=== PATIENT | female | born 1960 | race Caucasian/White ===

== ENCOUNTER 2016-09-05 21:39 | Emergency (ER) | payer OTHER ==
[~2016-09-05] VITALS: Ht 160 cm; Wt 58.5 kg
[~2016-09-05 21:39] MED LIST: CYCL-319 PO; GLIP-95 PO; LANT3I SC; LOPE2CAP PO; MTF1000T PO; NITR-58 PO; PHEN-538 PO; SIMV20TA2 PO
[2016-09-05 21:49] VITALS: Ht 160 cm; Wt 58.5 kg
[2016-09-05] MEDS ORDERED: SOD CHLORIDE 0.9% 1,000 ML IV ONE (23:00)
[2016-09-05 23:17] LABS: ADD SCAN DIFF NO
[2016-09-05 23:19] LABS: BASOPHILS % 0.4 % (0.0-2.0); EOSINOPHILS # 0.1 10^3/ul (0.0-0.5); EOSINOPHILS % 0.7 % (0.0-7.0); HEMATOCRIT 39.1 % (37.0-47.0); HEMOGLOBIN 13.6 g/dl (12.0-16.0); LYMPHOCYTES # 1.6 10^3/ul (0.8-2.9); LYMPHOCYTES % 20.5 % (15.0-51.0); MEAN CORPUSCULAR HEMOGLOBIN 30.4 pg (29.0-33.0); MEAN CORPUSCULAR HGB CONC 34.8 g/dl (32.0-37.0); MEAN CORPUSCULAR VOLUME 87.5 fl (82.0-101.0); MEAN PLATELET VOLUME 9.2 fl (7.4-10.4); MONOCYTE # 0.5 10^3/ul (0.3-0.9); NEUTROPHIL # 5.4 10^3/ul (1.6-7.5); NEUTROPHILS % 70.9 % (39.0-77.0); PLATELET COUNT 398 10^3/UL (140-415); RED BLOOD COUNT 4.47 10^6/ul (4.20-5.40); RED CELL DISTRIBUTION WIDTH 12.8 % (11.5-14.5); WHITE BLOOD COUNT 7.7 10^3/ul (4.8-10.8)
--- NOTE | 2016-09-05 23:21 | ERD ---
ER Documentation Chief Complaint Date/Time DATE: 09/05/16 TIME: 23:20 Chief Complaint fever on and off x 2 days, body pain, chills HPI 56-year-old male presents here in emergency department for complaints of generalized bodyaches, chills, fever on-and-off for the last 2 days. Patient does any other symptoms. Patient denies any abdominal pain, flank pain hematuria dysuria. Patient denies any nausea or vomiting. Patient denies any sick contacts patient denies any cough ROS All systems reviewed and are negative except as per history of present illness. Medications Home Meds Active Scripts Acetaminophen* (Tylophen*) 500 Mg Capsule, 1 CAP PO Q6H Y for PAIN AND OR ELEVATED TEMP, #20 CAP Prov:SP[employer]ER [employer]ILD [employer] 09/06/16 Ibuprofen* (Motrin*) 400 Mg Tab, 400 MG PO Q6H Y for PAIN AND OR ELEVATED TEMP, #30 TAB Prov:SPENCER FAIRCHILD NP 09/06/16 Phenazopyridine Hcl* (Pyridium*) 200 Mg Tab, 200 MG PO TID Y for URINARY PAIN, # 6 TAB Prov:SP[employer]ER [employer]CHILD [employer] 09/06/16 Ciprofloxacin Hcl* (Ciprofloxacin Hcl*) 500 Mg Tablet, 500 MG PO BID for 10 Days , TAB Prov:SPENCER FAIRCHILD NP 09/06/16 Loperamide Hcl* (Imodium*) 2 Mg Capsule, 2 MG PO .AFTER EA LOOSE BM Y for DIARRHEA, #10 TAB Prov:XIOMARA LEE MD 09/30/14 Phenazopyridine Hcl* (Pyridium*) 200 Mg Tab, 200 MG PO TID Y for uti, pain, #6 TAB Prov:JAYDA FLOWERS 09/26/14 Nitrofurantoin Monohyd Macrocr* (Macrobid*) 100 Mg Capsr, 100 MG PO BID for 14 Days, CAP Prov:JAYDA FLOWERS 09/26/14 Reported Medications Cyclobenzaprine Hcl* (Cyclobenzaprine Hcl*) 10 Mg Tablet, 10 MG PO QHS, TAB 09/30/14 Simvastatin (Simvastatin) 20 Mg Tablet, 20 MG PO HS, TAB 09/30/14 Insulin Glargine* (Lantus*) 100 Unit/Ml Soln, 7 UNIT SC HS, EA 09/26/14 Glipizide* (Glipizide*) 10 Mg Tablet, 10 MG PO BID, TAB 09/26/14 Metformin* (Glucophage*) 1,000 Mg Tablet, 1000 MG PO BID 11/02/11 Allergies Allergies: Coded Allergies: No Known Allergy (Unverified , 09/26/14) PMhx/Soc History of Surgery: No Anesthesia Reaction: No Hx Neurological Disorder: No Hx Respiratory Disorders: No Hx Cardiac Disorders: Yes (DM) Hx Psychiatric Problems: No Hx Miscellaneous Medical Probl: Yes (HIGH CHOLESTEROL) Hx Alcohol Use: No Hx Substance Use: No Hx Tobacco Use: No FmHx Family History: No coronary disease, No diabetes, No other Physical Exam Vitals Vital Signs Date Time Temp Pulse Resp B/P Pulse Ox O2 Delivery O2 Flow Rate FiO2 09/06/16 01:48 100.0 103 17 112/63 97 Room Air 09/05/16 21:49 98.9 114 20 139/76 98 Physical Exam GENERAL: The patient is well developed and appropriate for usual state of health, in no apparent distress. CHEST: Clear to auscultation bilaterally. There are no rales, wheezes or rhonchi. HEART: Regular rate and rhythm. No murmurs, clicks, rubs or gallops. No S3 or S4. ABDOMEN: Soft, nontender and nondistended. Good bowel sounds. No rebound or guarding. No gross peritonitis. No gross organomegaly or masses. No Manrique sign or McBurney point tenderness. BACK: No midline or flank tenderness. EXTREMITIES: Equal pulses bilaterally. There is no peripheral clubbing, cyanosis or edema. No focal swelling or erythema. Full range of motion. Grossly neurovascularly intact. NEURO: Alert and oriented. Cranial nerves 2-12 intact. Motor strength in all 4 extremities with 5/5 strength. Sensation grossly intact. Normal speech and gait. SKIN: There is no apparent rash or petechia. The skin is warm and dry. HEMATOLOGIC AND LYMPHATIC: There is no evidence of excessive bruising or lymphedema. No gross cervical, axillary, or inguinal lymphadenopathy. Result Diagram: 09/05/16 2300 09/05/16 2300 Results 24 hrs Laboratory Tests Test 09/05/16 23:00 White Blood Count 7.710^3/ul Red Blood Count 4.4710^6/ul Hemoglobin 13.6g/dl Hematocrit 39.1% Mean Corpuscular Volume 87.5fl Mean Corpuscular Hemoglobin 30.4pg Mean Corpuscular Hemoglobin Concent 34.8g/dl Red Cell Distribution Width 12.8% Platelet Count 78546^3/UL Mean Platelet Volume 9.2fl Neutrophils % 70.9% Lymphocytes % 20.5% Monocytes % 7.0% Eosinophils % 0.7% Basophils % 0.4% Nucleated Red Blood Cells % 0.0/100WBC Neutrophils # 5.410^3/ul Lymphocytes # 1.610^3/ul Monocytes # 0.510^3/ul Eosinophils # 0.110^3/ul Basophils # 0.010^3/ul Nucleated Red Blood Cells # 0.010^3/ul Urine Color YELLOW Urine Clarity CLEAR Urine pH 6.0 Urine Specific [place] 1.017 Urine Ketones TRACEmg/dL Urine Nitrite NEGATIVEmg/dL Urine Bilirubin NEGATIVEmg/dL Urine Urobilinogen NEGATIVEmg/dL Urine Leukocyte Esterase 3+Isis/ul Urine Microscopic RBC 1/HPF Urine Microscopic WBC 6/HPF Urine Squamous Epithelial Cells FEW/HPF Urine Hemoglobin NEGATIVEmg/dL Urine Glucose 3+mg/dL Urine Total Protein NEGATIVEmg/dl Sodium Level 136mmol/L Potassium Level 4.5mmol/L Chloride Level 100mmol/L Carbon Dioxide Level 24mmol/L Anion Gap 17 Blood Urea Nitrogen 17mg/dl Creatinine 0.69mg/dl Glucose Level 237mg/dl Calcium Level 9.5mg/dl Total Bilirubin 0.1mg/dl Direct Bilirubin 0.00mg/dl Indirect Bilirubin 0.1mg/dl Aspartate Amino Transf (AST/SGOT) 52IU/L Alanine Aminotransferase (ALT/SGPT) 61IU/L Alkaline Phosphatase 153IU/L Total Protein 7.5g/dl Albumin 4.6g/dl Globulin 2.90g/dl Albumin/Globulin Ratio 1.58 Lipase 233U/L Current Medications Medications (Trade) Dose Ordered Sig/Brian Route PRN Reason Start Time Stop Time Status Last Admin Dose Admin Sodium Chloride 1,000 ml @ 1,000 mls/hr Q1H ONCE IV 09/05/16 23:00 09/05/16 23:59 DC 09/05/16 23:32 Ceftriaxone Sodium (Rocephin) 50 ml @ 100 mls/hr ONCE ONCE IVPB 09/06/16 00:00 09/06/16 00:29 DC 09/06/16 00:20 Normal saline IV bolus was given here in emergency department for rehydration, patient tolerated IV fluids. IV Rocephin was given here in emergency department for treatment of pyelonephritis Microbiology INFLUENZA A & B BY EIA Final INFLU A&B BY EIA INFLUENZA A NEGATIVE (Ref Range Neg) INFLUENZA B NEGATIVE (Ref Range Neg) Procedures/MDM Medical Decision Making: Patients symptoms are consistent with acute pyelonephritis. Outpatient management is appropriate at this time since patient appears well and is hemodynamically stable, no symptoms of sepsis, strict return precautions were advised the patient. Patient's blood sugars also control. no ketoacidosis noted. There is low suspicion for abdominal emergencies at this time. Patients abdominal exam is normal. There is low suspicion for sepsis. Patient appears well and is hemodynamically stable. Patient's diabetic symptoms have stabilized here in the emergency department and appear appropriate for outpatient management. No evidence at this time of diabetic ketoacidosis, hyperosmolar syndrome, or severe systemic infection Disposition: Home. Stable Prescription ciprofloxacin, Pyridium, ibuprofen Instructions: Patient is advised to take medications as prescribed. Patient is advised to rest, increase fluid intake and do good perineal hygiene. Patient is advised that if symptoms are worse, severe abdominal pain, uncontrolled vomiting , high fever, severe flank pain, worst signs and symptoms, to return to the emergency department immediately. Otherwise, patient can follow up with primary care doctor in 5-7 days. . Departure Diagnosis: Primary Impression: Pyelonephritis Condition: Stable Patient Instructions: Pyelonephritis, Female (Adult) Additional Instructions: Patient is advised to take medications as prescribed. Patient is advised to rest , increase fluid intake and do good perineal hygiene. Patient is advised that if symptoms are worse, severe abdominal pain, uncontrolled vomiting, high fever , severe flank pain, worst signs and symptoms, to return to the emergency department immediately. Otherwise, patient can follow up with primary care doctor in 5-7 days. SPENCER FAIRCHILD. OSVALDO Sep 05, 2016 23:21
[2016-09-05 23:22] LABS: ADD UMIC YES; UR ASCORBIC ACID NEGATIVE (NEGATIVE); UR BILIRUBIN (Dip) NEGATIVE (NEGATIVE); UR BLOOD (Dip) NEGATIVE (NEGATIVE); UR CLARITY CLEAR (CLEAR); UR COLOR YELLOW (YELLOW); UR GLUCOSE (Dip) 3+ mg/dL (NEGATIVE); UR KETONES (Dip) TRACE mg/dL (NEGATIVE); UR LEUKOCYTE ESTERASE (Dip) 3+ Leu/ul (NEGATIVE); UR NITRITE (Dip) NEGATIVE (NEGATIVE); UR RBC 1 /HPF (0-5); UR SPECIFIC GRAVITY (Dip) 1.017 (1.003-1.030); UR SQUAMOUS EPITHELIAL CELL FEW /HPF (FEW); UR TOTAL PROTEIN (Dip) NEGATIVE (NEGATIVE); UR UROBILINOGEN (Dip) NEGATIVE (NEGATIVE)
[2016-09-05 23:39] LABS: ALBUMIN 4.6 g/dl (3.3-4.9); ALBUMIN/GLOBULIN RATIO 1.58; BILIRUBIN,INDIRECT 0.1 mg/dl (0-1.1); BILIRUBIN,TOTAL 0.1 mg/dl (0.2-1.3); CALCIUM 9.5 mg/dl (8.4-10.2); CREATININE 0.69 mg/dl (0.44-1.00); POTASSIUM 4.5 mmol/L (3.5-5.1); TOTAL PROTEIN 7.5 g/dl (6.1-8.1)
[2016-09-06] MEDS ORDERED: CEFTRIAXONE 1 GM/50 ML (PMX) 50 ML IVPB ONE
[2016-09-06] MEDS ORDERED: CIPR500T4 PO (00:32)
[2016-09-06] MEDS ORDERED: IBUP400T22 PO (00:32)
[2016-09-06] MEDS ORDERED: ACET500C5 PO (00:32)
[2016-09-06] MEDS ORDERED: PHEN-538 PO (00:32)
[2016-09-06 01:48] VITALS: BP 112/63; PULSE 103; RESP 17; TEMP 100
== END 2016-09-06 01:48 | disposition home or self-care (01) ==
LOC: FTE 21:39
DX: N12 Tubulo-interstitial nephritis, not specified as acute or chronic (principal); E11.9 Type 2 diabetes mellitus without complications; Z79.4 Long term (current) use of insulin; Z79.84 Long term (current) use of oral hypoglycemic drugs
CPT/HCPCS: 80053; 81001; 83690; 85025; 87086; 87400; J0696; J7030; 36415; 96361; 96365

== ENCOUNTER 2017-03-16 12:42 | Emergency (ER) | END 2017-03-17 17:43 | disposition home or self-care (01) ==

== ENCOUNTER 2018-08-27 13:16 | Emergency (ER) | payer OTHER ==
[~2018-08-27] VITALS: Ht 157.5 cm; Wt 58.2 kg
[~2018-08-27 13:16] MED LIST changes: +ACET500C5 PO; +AZIT250T PO; +BENZ-6 PO; +CIPR500T4 PO; -CYCL-319 PO; +CYCL10TA7 PO; +D-ME473S2 PO; -GLIP-95 PO; +GLIP10TA14 PO; +IBUP-1561 PO
[2018-08-27 13:31] VITALS: Ht 157.5 cm; Wt 58.2 kg
[2018-08-27] MEDS ORDERED: SOD CHLORIDE 0.9% 1,000 ML IV STA (14:07)
[2018-08-27] MEDS ORDERED: ONDANSETRON 4 MG INJ IV STA (14:07)
--- NOTE | 2018-08-27 14:07 | ERD ---
ER Documentation Chief Complaint Chief Complaint epigastric pain w/ vomitting x4 days HPI 58-year-old female with a history of diabetes and gastritis presenting with epigastric abdominal pain for the past 4 days. The pain is constant, 7 out of 10, worse with eating and associated with mild nausea. The pain is aching, radiating to the back. No associated fever, chills, vomiting, melena or hematochezia. ROS All systems reviewed and are negative except as per history of present illness. Medications Home Meds Active Scripts Famotidine* (Pepcid*) 20 Mg Tablet, 20 MG PO BID for 7 Days, TAB Prov:DONY COSTA MD 08/27/18 Reported Medications Calcium Carbonate/Vitamin D3 (OYSTER SHELL 500 MG + VIT D TB) 1 Each Tablet, 1 EACH PO DAILY, TAB 08/27/18 Omeprazole* (Omeprazole*) 20 Mg Capsule.dr, 20 MG PO DAILY, #30 CAP 08/27/18 Insulin Glargine,Hum.rec.anlog (Basaglar Kwikpen U-100) 100 Unit/1 Ml Insuln. pen, 14 UNIT SC DAILY, EA 08/27/18 Simvastatin* (Zocor*) 20 Mg Tablet, 20 MG PO QHS, #30 TAB 08/27/18 Metformin Hcl* (Metformin Hcl*) 1,000 Mg Tablet, 1000 MG PO WITH BREAKFAST DINNE, #60 TAB 08/27/18 Discontinued Reported Medications Cyclobenzaprine Hcl* (Cyclobenzaprine Hcl*) 10 Mg Tablet, 10 MG PO QHS, TAB 09/30/14 Simvastatin (Simvastatin) 20 Mg Tablet, 20 MG PO HS, TAB 09/30/14 Insulin Glargine* (Lantus*) 100 Unit/Ml Soln, 7 UNIT SC HS, EA 09/26/14 Glipizide* (Glipizide*) 10 Mg Tablet, 10 MG PO BID, TAB 09/26/14 Metformin* (Glucophage*) 1,000 Mg Tablet, 1000 MG PO BID 11/02/11 Discontinued Scripts Azithromycin* (Zithromax*) 250 Mg Tablet, 250 MG PO .DEMETRIO DIRECTED, #6 TAB TAKE 500 MG (2 TABS) THE FIRST DAY THEN 250 MG (1 TAB) DAYS 2-5 Prov:JEFFREY EPPERSON PA-C 03/16/17 Benzonatate* (Tessalon Perle*) 100 Mg Capsule, 100 MG PO Q8H PRN for COUGH, #30 CAP Prov:JEFFREY EPPERSON PA-C 03/16/17 Dextromethorphan Hb-Promethazine Hcl* (Promethazine DM* Syrup) 473 Ml Syrup, 5 ML PO Q6 PRN for COUGH, #100 ML Prov:JEFFREY EPPERSON PA-C 03/16/17 Acetaminophen* (Tylophen*) 500 Mg Capsule, 1 CAP PO Q6H PRN for PAIN AND OR ELEVATED TEMP, #20 CAP Prov:SPENCER FAIRCHILD NP 09/06/16 Ibuprofen* (Motrin*) 400 Mg Tab, 400 MG PO Q6H PRN for PAIN AND OR ELEVATED TEMP, #30 TAB Prov:SPENCER FAIRCHILD NP 09/06/16 Phenazopyridine Hcl* (Pyridium*) 200 Mg Tab, 200 MG PO TID PRN for URINARY PAIN, #6 TAB Prov:SPENCER FAIRCHILD NP 09/06/16 Ciprofloxacin Hcl* (Ciprofloxacin Hcl*) 500 Mg Tablet, 500 MG PO BID for 10 Days, TAB Prov:SPENCER FAIRCHILD NP 09/06/16 Loperamide Hcl* (Imodium*) 2 Mg Capsule, 2 MG PO .AFTER EA LOOSE BM PRN for DIARRHEA, #10 TAB Prov:XIOMARA LEE MD 09/30/14 Phenazopyridine Hcl* (Pyridium*) 200 Mg Tab, 200 MG PO TID PRN for uti, pain, #6 TAB Prov:JAYDA FLOWERS 09/26/14 Nitrofurantoin Monohyd Macrocr* (Macrobid*) 100 Mg Capsr, 100 MG PO BID for 14 Days, CAP Prov:JAYDA FLOWERS 09/26/14 Allergies Allergies: Coded Allergies: No Known Allergy (Unverified , 08/27/18) PMhx/Soc History of Surgery: No Anesthesia Reaction: No Hx Neurological Disorder: No Hx Respiratory Disorders: No Hx Cardiac Disorders: No Hx Psychiatric Problems: No Hx Miscellaneous Medical Probl: Yes (DM) Hx Alcohol Use: No Hx Substance Use: No Hx Tobacco Use: No Smoking Status: Never smoker FmHx Family History: No coronary disease Physical Exam Vitals Vital Signs Date Temp Pulse Resp B/P (MAP) Pulse Ox O2 O2 Flow FiO2 Time Delivery Rate 08/27/18 98.0 73 18 143/75 97 Room Air 16:44 (97) 08/27/18 72 16 152/82 97 Room Air 14:33 (105) 08/27/18 98.7 72 18 150/76 99 13:31 (100) Physical Exam Const: No acute distress Head: Atraumatic Eyes: Normal Conjunctiva ENT: Normal External Ears, Nose and Mouth. Neck: Full range of motion. No meningismus. Resp: Clear to auscultation bilaterally Cardio: Regular rate and rhythm, no murmurs Abd: Soft, non tender, non distended. Negative Manrique sign. No McBurney's point tenderness. No pulsatile mass. Normal bowel sounds Skin: No petechiae or rashes Back: No midline or flank tenderness Ext: No cyanosis, or edema Neur: Awake and alert Psych: Normal Mood and Affect Result Diagram: 08/27/18 1409 08/27/18 1409 Results 24 hrs Laboratory Tests Test 08/27/18 14:09 White Blood Count 13.0 10^3/ul Red Blood Count 4.19 10^6/ul Hemoglobin 12.5 g/dl Hematocrit 37.1 % Mean Corpuscular Volume 88.5 fl Mean Corpuscular Hemoglobin 29.8 pg Mean Corpuscular Hemoglobin Concent 33.7 g/dl Red Cell Distribution Width 12.7 % Platelet Count 399 10^3/UL Mean Platelet Volume 9.8 fl Immature Granulocytes % 0.400 % Neutrophils % % Segmented Neutrophils % (Manual) 70 % Lymphocytes % % Lymphocytes % (Manual) 13 % Monocytes % % Monocytes % (Manual) 3 % Eosinophils % % Eosinophils % (Manual) 14 % Basophils % % Nucleated Red Blood Cells % 0.0 /100WBC Immature Granulocytes # 0.050 10^3/ul Neutrophils # 10^3/ul Lymphocytes (Manual) 1.6 10^3/ul Lymphocytes # 10^3/ul Monocytes # 10^3/ul Monocytes # (Manual) 0.3 10^3/ul Eosinophils # 10^3/ul Basophils # 10^3/ul Nucleated Red Blood Cells # 10^3/ul Platelet Estimate NORMAL Polychromasia 1+ Anisocytosis 2+ Microcytosis 1+ Macrocytosis 1+ Urine Color YELLOW Urine Clarity CLEAR Urine pH 6.0 Urine Specific [place] 1.018 Urine Ketones NEGATIVE mg/dL Urine Nitrite NEGATIVE mg/dL Urine Bilirubin NEGATIVE mg/dL Urine Urobilinogen NEGATIVE mg/dL Urine Leukocyte Esterase NEGATIVE Isis/ul Urine Hemoglobin NEGATIVE mg/dL Urine Glucose 1+ mg/dL Urine Total Protein NEGATIVE mg/dl Sodium Level 137 mmol/L Potassium Level 3.9 mmol/L Chloride Level 104 mmol/L Carbon Dioxide Level 25 mmol/L Anion Gap 8 Blood Urea Nitrogen 10 mg/dl Creatinine 0.52 mg/dl Est Glomerular Filtrat Rate mL/min > 60 mL/min Glucose Level 191 mg/dl Calcium Level 9.4 mg/dl Total Bilirubin 0.5 mg/dl Direct Bilirubin 0.00 mg/dl Indirect Bilirubin 0.5 mg/dl Aspartate Amino Transf (AST/SGOT) 24 IU/L Alanine Aminotransferase (ALT/SGPT) 17 IU/L Alkaline Phosphatase 100 IU/L Total Protein 7.3 g/dl Albumin 4.4 g/dl Globulin 2.90 g/dl Albumin/Globulin Ratio 1.51 Lipase 116 U/L Current Medications Medications Dose Sig/Brian Start Time Status Last (Trade) Ordered Route PRN Stop Time Admin Dose Reason Admin Sodium 1,000 ml @ Q1H STAT 08/27/18 DC 08/27/18 Chloride 1,000 mls/hr IV 14:07 14:26 08/27/18 15:06 Ondansetron 4 mg ONCE STAT 08/27/18 DC 08/27/18 HCl (Zofran IV 14:07 14:26 Inj) 08/27/18 14:09 Morphine 4 mg ONCE STAT 08/27/18 DC 08/27/18 Sulfate IV 14:20 14:26 (morphine) 08/27/18 14:22 Procedures/MDM EMERGENT LABS AND DIAGNOSTIC STUDIES: Lab Results above were reviewed and interpreted by me. CBC: Mild leukocytosis, no evidence of anemia CMP: No evidence of clinically significant electrolyte abnormality, acidosis, renal failure, hypoglycemia, liver disease, or biliary obstruction Lipase: no evidence of pancreatitis Radiology Results as interpreted by Radiology below were reviewed by Venkat Costa MD: Ultrasound gallbladder shows no evidence of stones or other acute abnormality Initial Nursing notes reviewed. Previous Medical Records requested via the Electronic Health Record. EMERGENCY DEPARTMENT COURSE / MEDICAL DECISION MAKING: Differential includes but is not limited to biliary colic, biliary obstruction, acute cholecystitis, pancreatitis, hepatitis, gastritis. doubt lower lobe pneumonia, colitis, cardiac pathology, aortic dissection, ureterolithiasis, pyelonephritis. Labs were ordered to evaluate for above and were normal. Ultra sound of the abdomen ordered to evaluate gallbladder and showed no acute pathology. At this moment the etiology of the abdominal pain is unknown. The patients vitals have been noted and are currently afebrile and hemodynamically stable. The workup, physical exam and observation period do not indicate a serious cause to the pain. I explained to the patient that her pain is most likely secondary to her gastritis versus gastric ulcer. The patients symptoms have improved while in the ED and the patient remains hemodynamically stable. Patient was able to tolerate PO. The current assessment has been explained to the patient including the fact that the etiology of the pain cannot be ruled out with certainty. Patient was advised that in the event this is early in the process of a more serious condition they may expect their symptoms to worsen and if so to return to the emergency department immediately. Patient was advised to follow up with primary care physician as soon as possible for re-evaluation within the next 1-2 days. All of the patients questions were answered. Patient verbalized understanding of plan and agrees. Advised to return to the ER for reevaluation within 12 hours if symptoms worsen. Patient's blood pressure was elevated (>120/80) but appears stable without evidence of hypertensive emergency or urgency. The patient was counseled about the risks of hypertension and urged to pursue outpatient monitoring and therapy within a week with their primary care physician. Departure Diagnosis: Primary Impression: Epigastric pain Condition: Stable DONY COSTA MD Aug 27, 2018 14:07
[2018-08-27] MEDS ORDERED: morphine 4 MG/ML VIAL IV STA (14:20)
[2018-08-27] MEDS ORDERED: METF100010 PO (14:29)
[2018-08-27] MEDS ORDERED: SIMV20TA PO (14:30)
[2018-08-27] MEDS ORDERED: INSU100I33 SC (14:30)
[2018-08-27] MEDS ORDERED: CALC1TAB93 PO (14:31)
[2018-08-27] MEDS ORDERED: OMEP20CA16 PO (14:31)
[2018-08-27] MEDS ORDERED: FAMO-96 PO (16:20)
[2018-08-27 16:44] VITALS: BP 143/75; PULSE 73; RESP 18
== END 2018-08-27 16:46 | disposition home or self-care (01) ==
LOC: E/R 13:16
DX: R10.13 Epigastric pain (principal); E11.9 Type 2 diabetes mellitus without complications; R11.0 Nausea; Z79.4 Long term (current) use of insulin
CPT/HCPCS: 36415; 76705; 80053; 81003; 83690; 85025; 96374; 96375; J2270; J2405; J7030; Z7502